=== PATIENT | female | born 1995 | race Caucasian/White ===

== ENCOUNTER → 2017-06-21 | Outpatient (CLI) | payer OTHER ==
[~2017-06-21] MED LIST: BCP; IBP800T PO; TRM50T PO; antidepressant
--- NOTE | 2017-06-21 09:59 | Diagnostic Imaging Report ---
INDICATION: Abdominal pain Gallbladder sonography performed in a routine fashion. The liver shows normal echogenicity with no focal lesions. Gallbladder is unremarkable with no gallstones or wall thickening. Common duct measured 5 mm. Pancreas not well-seen due to overlying gas. Right kidney was normal measuring 11.1 cm in length. There is no ascites. Portal vein is patent with flow in the normal direction towards the liver. IMPRESSION: Unremarkable gallbladder sonography. Dictated by: Dictated on workstation # [id number]
== END ==
LOC: RAD 07:10
PROVIDERS: ATTEND Nurse Practitioner Family
DX: R10.13 Epigastric pain (principal)
CPT/HCPCS: 76705